=== PATIENT | female | born 1930 | race Caucasian/White ===

== ENCOUNTER 2019-06-17 04:24 | Emergency (ER) | payer MEDICARE | END 2019-06-17 05:10 | disposition home or self-care (01) | LOC: NAV ERS 04:24 | DX: I10 Essential (primary) hypertension (principal); E03.9 Hypothyroidism, unspecified; I48.91 Unspecified atrial fibrillation; Z86.73 Personal history of transient ischemic attack (TIA), and cerebral infarction without residual deficits; Z79.899 Other long term (current) drug therapy; Z79.01 Long term (current) use of anticoagulants | CPT/HCPCS: 99283 ==